=== PATIENT | male | born 1995 | race Caucasian/White ===

== ENCOUNTER 2016-05-27 08:24 | Day surgery (SDC) | payer OTHER ==
[2016-05-27] VITALS (10 sets, daily range): BP systolic 90–125; BP diastolic 47–87; PULSE 65–92; RESP 7–17; O2SAT 98–100
[~2016-05-27] VITALS: Ht 167.6 cm; Wt 59.0 kg
[~2016-05-27 08:24] MED LIST: CeFAZolin 2 Gm/50 mL D5W IV Premix IV SCH; Lactated Ringer's 1,000 ML IV SCH
[2016-05-27] MEDS ORDERED: fentaNYL-PF 50 mCg/mL 2 mL Inj ONE (08:25)
[2016-05-27] MEDS ORDERED: Dexamethasone 4 mg/mL Inj ONE (08:25)
[2016-05-27] MEDS ORDERED: Ondansetron 2 mg/mL 2 mL Inj ONE (08:25)
[2016-05-27] MEDS ORDERED: Propofol 10,000 mCg/mL 20 mL Inj ONE (08:25)
[2016-05-27] MEDS ORDERED: Lidocaine PF 1% 30 mL Inj ONE (08:25)
[2016-05-27] MEDS ORDERED: Polyethylene Glycol (PEG) 17 Gm Powder PO SCH (08:30)
[2016-05-27] MEDS ORDERED: Lactated Ringer's 1,000 ML IV ONE (08:46)
[2016-05-27] MEDS ORDERED: CeFAZolin Inj 2 gm / 50mL D5W IV ONE (09:04)
[2016-05-27] MEDS ORDERED: POLY17PO6 PO (09:21)
[2016-05-27] MEDS ORDERED: OXYC5TAB72 PO (09:21)
[2016-05-27] MEDS ORDERED: Lactated Ringer's 500 ML IV PRN (09:43)
[2016-05-27] MEDS ORDERED: Lactated Ringer's 1,000 ML IV SCH (09:43)
--- NOTE | 2016-05-27 09:43 | PCM.HPANE ---
Patient Data Surgeon Admitting Provider: Attending Provider:Yves Rodriguez MD Primary Care Physician:Pratibha Other Provider:Chris Antunez Anesthesia Reason for Visit Left Inguinal Hernia Ht/WT & BMI Height (Feet): 5 Height (Inches): 6.00 Weight (Kilograms): 58.970 Body Mass Index 20.00 Allergies Coded Allergies: No Known Allergies (Unverified , 05/23/16) Past Anesthesia History Anesthesia History: Denies:: Abnormal Airway, Anesthesia Reactions (no prior surgery), Difficult Intubation, Fam Anesthesia Reaction, Malignant Hyperthermia Diabetes History Hx Diabetes?: No MRSA MRSA: No Medications Hypertension Medication: No Home Meds Incl Beta Dianne: No Active Scripts oxyCODONE 5 Mg Tablet5 Mg PO Q4H PRN For Moderate Pain #30 TABLET Prov:Yves Rodriguez MD 05/27/16 Polyethylene Glycol 3350 (Miralax)17 Gm Powd.pack17 Gm PO DAILY #30 Prov:Yves Rodriguez MD 05/27/16 History History of ENT Problems?: No HEENT History: Denies:: Abnormal Airway Cataracts Difficult Intubation Dysphagia Glaucoma Hearing Problem Sinus Problem TMJ Cardiovascular History: Denies:: AICD Abdominal Aortic Aneurism Atrial Fibrillation Cardiac Surgery Chest Pain Congestive Heart Failure Coronary Artery Disease Edema Heart Murmur Hypertension Irregular Heartbeat Pacemaker Peripheral Vascular Hx of Respiratory Problem?: Yes Respiratory History: Positive for:: Asthma (asthma as child, not current) Denies:: COPD Emphysema Oxygen Administration Pneumonia Tuberculosis Use of C-PAP Machine Use of Inhalers / NEBS Hx Neurologic Problems?: No Neurological History: Denies:: Alzheimer's Disease CVA Dementia Dizziness Headaches Multiple Sclerosis Parkinson's Disease Seizures TIA Hx of GI Problems?: Yes Gastrointestinal History: Denies:: Cirrhosis Gall Bladder Disease Gastroesphageal Reflux Gastrointestinal Bleeding Heartburn Hepatitis Hiatal Hernia Liver Disease Other GI Pertinent History: left inguinal hernia current admission problem Hx of Problems?: No Genitourinary History: Denies:: Kidney Stones Urinary Tract Infection Male Hx: Denies:: Prostate Problems Scrotal Mass Testicular Surgery Skin History: Denies:: History Skin Disorders? Pressure Ulcers Hx Musculoskeletal Problems?: No Musculoskeletal History: Denies:: Back Injury Degenerative Joint Fibromyalgia Joint Replacement Musculoskeletal Trauma Myasthenia Gravis Osteoarthritis Rheumatoid Arthritis Hx of Psycho/Social Problems?: No Psycho Social History: Denies:: Anxiety Hx Depression Hx Surgeries?: No (no prior surgery) Hx Any Other Health Problems?: No Other History: Denies:: Cancer Thyroid Disease History Blood Transfusions: Positive for:: Accept Blood Products? Denies:: Blood Transfusions Hx Diabetes: No Hx Alcohol Use: YesAlcoholic Drinks Per Day: a drink every few weeksHx Substance Use: NoHave You Smoked inLast 12 mo: No Stop/Bang S-Snoring: Do You Snore Loudly: No T-Tired: feel tired, fatigued: No O-Obsered: Observed not breath: No P-Blood Pressure: treated: No B- Body Mass Index > 35 kg/m2: No A- Age over 50: No N- Neck Large Circumference: No G- Gender Male: Yes SELVIN Total Score: 1 Risk Assessment Category Category 1A: Patient has history of documented sleep apnea, and HAS NOT received any narcotic, sedative or anesthesia administration during this stay. Category 1B: Patient has history of documented sleep apnea, and HAS received any narcotic , sedative or anesthesia administration during this stay Category 2: Patient has SUSPECTED Obstructive Sleep Apnea, and HAS received any narcotic , sedative or anesthesia administration during this stay. Category 3: Patient has SUSPECTED Obstructive Sleep Apnea and HAS NOT received narcotic, sedative or anesthesia administration during this stay. Category 4: Outpatient in Procedural Areas with known sleep apnea or who screen positive for High Risk via the STOP/BANG questionnaire. Exam Exam Vital Signs Vital Signs Date Time Temp Pulse Resp B/P Pulse Ox O2 Delivery O2 Flow Rate FiO2 05/27/16 08:47 36.2 82 17 125/87 100 Room Air General Appearance: Alert, Oriented X3 HEENT/AIRWAY: MP 2, Neck Movement (FROM) Lungs: Clear to Auscultation, Clear to Percussion Heart: Exam Unremarkable, Regular Rate/Rhythm Meds/Labs/Diagnostics Admission Meds Current Medications Lactated Ringer's (Lr) 1,000 ml @ ud STK-MED ONCE IV Last administered on t 08:46; Start 05/27/16 at 08:46; Stop 05/27/16 at 08:47; Status DC Plan Impression Patient chart reviewed, patient interviewed and anesthestic plan with risks, benefits, and alternatives discussed, and informed consent obtained. NPO Status: 05/26@2300 ASA Physical Status: ASA1 Normal Healthy Anesthetic Plan: GA Bene/Risks/Altern/Consents: Yes HP Complete Prior to Induction: Yes Saud Mccarthy MD May 27, 2016 09:15
[2016-05-27] MEDS ORDERED: MetoCLOpramide 5 mg/mL 2 mL Inj IVPUSH PRN (09:45)
[2016-05-27] MEDS ORDERED: Labetalol 5 mg/mL 4 mL Inj IV PRN (09:45)
[2016-05-27] MEDS ORDERED: EPHEDrine Sulfate 50 mg/mL Inj IVPUSH PRN (09:45)
[2016-05-27] MEDS ORDERED: Ondansetron 2 mg/mL 2 mL Inj IVPUSH PRN (09:45)
[2016-05-27] MEDS ORDERED: Phenylephrine 10,000 mCg/mL Inj IVPUSH PRN (09:45)
[2016-05-27] MEDS ORDERED: fentaNYL-PF 50 mCg/mL 2 mL Inj IVPUSH PRN (09:45)
[2016-05-27] MEDS ORDERED: Atropine 0.4 mg/mL Inj IVPUSH PRN (09:45)
[2016-05-27] MEDS ORDERED: Bupivacaine-MPF 0.5% 30 mL Inj INFILTRATE ONE (09:54)
[2016-05-27] MEDS: HYDROmorphone 1 mg/mL Inj IVPUSH PRN ×2 (12:10→12:17)
--- NOTE | 2016-05-27 12:11 | PCM.SURGPO ---
Immediate Operative Note Date of Surgery: May 27, 2016 Pre Operative Diagnosis Left Inguinal Hernia Post Operative Diagnosis Left Indirect Inguinal Hernia Procedure Open Repair of left inguinal hernia with mesh Surgeon and Anodizing Line Operator Surgeon: Yves Rodriguez MD Assistants: Cristina Ponce MS3 Findings Indirect Sac Complications There were no periprocedural complications identified. Surgical Specimen Removed: Yes Specimen sent to Pathology: No Anesthetic Administered: GA Grafts, Implants: Implants-See Implant Record Output, Estimated Blood Loss: 5 Blood Admin during surgery: No Attending Statement Senior Quality Analyst listed was medically necessary for the successful completion of the case Yves Rodriguez MD May 27, 2016 12:11
--- NOTE | 2016-05-27 12:19 | PCM.ANEP1 ---
Post Anesthesia Phase 1 PACU Phase 1 Assessment Date of Service: May 27, 2016 Vital Signs Vital Signs Date Time Temp Pulse Resp B/P Pulse Ox O2 Delivery O2 Flow Rate FiO2 05/27/16 12:04 92 13 122/84 98 Room Air 05/27/16 11:50 36.1 68 10 106/70 100 Simple Mask 8 05/27/16 11:45 71 10 101/63 99 Simple Mask 8 05/27/16 11:40 74 10 100/52 98 Simple Mask 8 05/27/16 11:35 75 9 96/47 98 Simple Mask 8 05/27/16 11:31 36.1 74 7 90/49 98 Simple Mask 8 05/27/16 08:47 36.2 82 17 125/87 100 Room Air Anesthetic Administered: GA Level of Alertness: Drowsy, not talking MARC's with Equal Strength: Yes Pain: No Nausea or Vomiting: No Airway Device: Oralpharangeal Airway Oxygen Delivery: Simple Mask Lungs: Clear to Auscultation, Clear to Percussion Saud Mccarthy MD May 27, 2016 12:19
--- NOTE | 2016-05-27 12:19 | PCM.ANEP2 ---
Post Anesthesia Evaluation ASA/CMS Post Anesthesia VS in Patient's Normal Range?: Yes Resp Stable; Airway Patent?: Yes CV Function & Hydration Stable: Yes Mental Status Recovered?: Yes Pain control Satisfactory?: Yes N/V Control Satisfactory?: Yes Saud Mccarthy MD May 27, 2016 12:19
--- NOTE | 2016-05-27 22:51 | OP ---
[address] [address] OPERATIVE REPORT PATIENT: DENNIS SILVA : 1995 MR#: [id number] ADMIT: 05/27/2016 JOB ID: [id number] DATE OF SURGERY: 05/27/2016 PREOPERATIVE DIAGNOSIS(ES): Left inguinal hernia. POSTOPERATIVE DIAGNOSIS(ES): Left indirect inguinal hernia. PROCEDURE PERFORMED: Open repair of left inguinal hernia with mesh. SURGEON: Yves Rodriguez MD. TECHNICAL INSPECTOR: Cristina Zapata PA-C and Cristela Ponce MS3. INDICATIONS: The patient is a 20-year-old gentleman who noticed swelling with discomfort in his left groin 2-3 weeks prior to seeing me on April 25, 2016. He was able to push it in when he laid back down. He was seen in Urgent Care and then was referred to me for surgical consultation. After discussing the risks, benefits, and alternatives, he is here today for open repair with mesh. PROCEDURE DETAILS: He was placed in a supine position and underwent smooth induction of general anesthesia, left groin was prepped and draped in the usual sterile fashion. Surgical time-out was undertaken using safety checklist, and all were in agreement. I began by making an incision along Kayla's lines, extending from the pubic tubercle laterally. Divided the skin and subcutaneous tissue sharply. Once I got to the external oblique aponeurosis, I opened it extending to the external inguinal ring and dissected the cord and the inguinal canal contents from the external oblique aponeurosis. I then encircled the cord with a Brett drain and noticed that the inguinal floor was largely intact. I then opened the cord and identified the indirect inguinal hernia sac and dissected it free from the cord structures. The distal part of the sac was excised and I traced the sac all the way down to the deep inguinal ring and performed high ligation with PDS and amputated the rest. After that, I also dissected the cord lipoma free from the cord structures and reduced it into the abdominal cavity. We then repaired the inguinal floor with a 3 x 6 Marlex mesh appropriately cut and anchored with 0 PDS sutures to the pubic tubercle inferomedially, shelving edge of the inguinal ligament inferiorly, and the rectus abdominis medially. I fashioned a new deep ring between the leaves of the mesh. The external oblique aponeurosis was then reapproximated with a running 3-0 Vicryl. Makeda's was reapproximated with interrupted 3-0 Vicryl. The skin was reapproximated with 4-0 Monocryl. Steri-Strips and sterile dressing were applied. Patient was recovered from anesthesia and was taken to the recovery room in a stable condition. SAAD
== END 2016-05-27 23:59 | disposition home or self-care (01) ==
LOC: SAS 08:24
PROVIDERS: ATTEND Student in an Organized Health Care Education/Training Program
DX: K40.90 Unilateral inguinal hernia, without obstruction or gangrene, not specified as recurrent (principal); J45.909 Unspecified asthma, uncomplicated
CPT/HCPCS: 49505; C1781; J0690; J1100; J1170; J2405; J3010; J7120